=== PATIENT | male | born 1940 ===

== ENCOUNTER 2018-11-17 17:42 | Inpatient (IN) | payer MEDICARE ==
[~2018-11-17] VITALS: Ht 177.8 cm; Wt 122.9 kg
[~2018-11-17 17:42] MED LIST: BISA5EC PO; FERR325 PO; FURO40 PO; Fruity C250 MG PO; GEMF600 PO; GLYB5 PO; Glyburide5 MG PO; LISI20 PO; LOSARTAN POTAS100 MG PO; OXYC5 PO; PIOG45 PO; SPIR50 PO
[2018-11-17] MEDS ORDERED: PIOG45 PO (18:08)
[2018-11-17] MEDS ORDERED: OXYC5 PO (18:08)
[2018-11-17] MEDS ORDERED: GEMF600 PO (18:08)
[2018-11-17] MEDS ORDERED: LOSA25 PO (18:09)
[2018-11-17] MEDS ORDERED: SPIR50 PO (18:09)
[2018-11-17] MEDS ORDERED: FURO40 PO (18:10)
[2018-11-17] MEDS ORDERED: GLYB2.5 PO (18:10)
[2018-11-17] MEDS ORDERED: Zantac150 MG PO (18:11)
[2018-11-17] MEDS ORDERED: ASCO500 PO (18:12)
[2018-11-17] MEDS ORDERED: CHOL10002 PO (18:13)
[2018-11-17] MEDS ORDERED: Ferrous Sulfat325 M2 PO (18:13)
[2018-11-17 18:53] LABS: BASOPHILS ABSOLUTE AUTO 0.04 K/mm3 (0.00-0.23); BASOPHILS PERCENT AUTO 1 % (0-2); EOSINOPHILS ABSOLUTE AUTO 0.03 K/mm3 (0.00-0.68); EOSINOPHILS PERCENT AUTO 0 % (0-6); Hematocrit 32.6 % (37.0-53.0); Hemoglobin 10.1 g/dL (13.5-17.5); IMMATURE GRAN ABSOLUTE AUTO 0.15 K/mm3 (0.00-0.10); IMMATURE GRAN PERCENT AUTO 2 % (0-1); LYMPHOCYTES ABSOLUTE AUTO 0.59 K/mm3 (0.84-5.20); LYMPHOCYTES PERCENT AUTO 8 % (21-46); MONOCYTES ABSOLUTE AUTO 0.55 K/mm3 (0.16-1.47); MONOCYTES PERCENT AUTO 8 % (4-13); Mean Corpuscular HGB 31.3 pg (26.0-34.0); Mean Corpuscular Volume 101 fL (80-100); Mean Platelet Volume 11.4 fL (9.1-12.4); NEUTROPHILS ABSOLUTE AUTO 5.81 K/mm3 (1.96-9.15); NEUTROPHILS PERCENT AUTO 81 % (41-73); Platelet Count 158 K/mm3 (150-400); RDW Coefficient Variation 16.6 % (11.7-14.2); RDW Standard Deviation 61.2 fL (35.1-46.3); Red Blood Cell Count 3.23 M/mm3 (4.30-5.90); White Blood Cell Count 7.17 K/mm3 (4.00-11.30)
[2018-11-17 19:39] LABS: Albumin, Blood 2.8 g/dL (3.4-5.0); Albumin/Globulin Ratio 0.7 (0.8-1.8); Bilirubin, Total 0.4 mg/dL (0.1-1.0); Bun/Creatinine Ratio 25.7 (12.0-20.0); Calcium, Blood 7.9 mg/dL (8.5-10.1); Creatinine, Blood 2.14 mg/dL (0.60-1.20); Globulin, Blood 3.8 g/dL (2.2-4.0); Total Protein, Blood 6.6 g/dL (6.4-8.2)
[2018-11-17 21:17] LABS: Source, Urine Clean Catch
[2018-11-17 21:18] LABS: Uric Acid, Blood 8.1 mg/dL (3.5-7.2)
[2018-11-17 21:21] LABS: Appearance, Urine Clear (Clear); Bilirubin, Urine Neg (Neg); Blood, Urine Neg (Neg); Color, Urine Yellow (P-Yellow); Glucose Qualitative, Urine Neg (Neg); Ketones, Urine Neg (Neg); Leukocyte Esterase, Urine Neg (Neg); Nitrite, Urine Neg (Neg); Protein, Urine Neg (Neg); Specific Gravity, Urine 1.015 (1.003-1.022); Urobilinogen, Urine NORM (Normal)
[2018-11-17 21:45] LABS: Sodium, Urine, Random 22 mmol/L (20-110); Urea Nitrogen, Urine, Random 422 mg/dL (350-1000)
[2018-11-17 21:55] LABS: Eosinophils-Raw #,Urine 0; White Blood Cells Urine Rare /hpf (0-5)
[2018-11-17 22:22] LABS: U Amphetamine Screen Not Detected; U Barbituate Screen Not Detected; U Benzodiazapine Screen Not Detected; U Buprenorphine Screen Not Detected; U Cannabinoids Screen Not Detected; U Cocaine Screen Not Detected; U Methadone Screen Not Detected; U Methamphetamine Screen Not Detected; U Opiates Screen Not Detected; U Oxycodone Screen DETECTED; U Phencyclidine Screen Not Detected; U Propoxyphene Screen Not Detected
--- NOTE | 2018-11-18 02:43 | NUR ---
ASSUMED CARE OF PATIENT AT APPROXIMATELY 2350 FROM ED [facility]. PATIENT ARRIVED TO UNIT VIA STRETCHER; TRANSFER WITH TWO ASSIST FROM ED TO PCU STRETCHER; PATIENT VERY WEAK AND EDEMATOUS. PATIENT DENIES PAIN, NUMBNESS, TINGLING, DIZZINESS, NAUSEA AND SOB. NSR ON TELE; OXYEGN SATURATION ABOVE 90% ON ROOM AIR. PATIENTS BLOOD SUGAR 49 UPON ARRIVAL TO UNIT; PATIENT GIVEN VANILLA PUDDING; CALLED DR. FAJARDO; ORDERS RECIEVED TO GIVE ORAANGE JUICE THEN RECHECK; CBG UP TO 114; PATIENT REPORTS HE DID NOT FEEL HYPOGLYCEMIC. MEDICATIONS GIVEN BY PCU MOVING VAN DRIVERSTAR SANDERS FOR HIGH POTASSIUM. REPORTED PATIENT USES URINAL BEDSIDE WITH ONE ASSIST. PATIENT SKIN VERY FRAGILE AND BRUISED. ADMISSION COMPLETE. PATIENT CURRENTLY RESTING IN BED; CALL LIGHT IN REACH; BED IN LOWEST POSISTION; BED ALARM ON; WILL CONTINUE TO MONITOR AND ASSESS UNTIL END OF SHIFT.
[2018-11-18 02:52] LABS: Hematocrit 31.1 % (37.0-53.0); Hemoglobin 9.6 g/dL (13.5-17.5); Mean Corpuscular HGB 31.6 pg (26.0-34.0); Mean Corpuscular HGB Conc 30.9 g/dL (31.5-36.5); Mean Corpuscular Volume 102 fL (80-100); Mean Platelet Volume 10.9 fL (9.1-12.4); Platelet Count 140 K/mm3 (150-400); RDW Coefficient Variation 16.8 % (11.7-14.2); RDW Standard Deviation 62.8 fL (35.1-46.3); Red Blood Cell Count 3.04 M/mm3 (4.30-5.90); White Blood Cell Count 6.63 K/mm3 (4.00-11.30)
[2018-11-18 03:20] LABS: BASOPHILS ABSOLUTE MAN 0.19 K/mm3 (0.00-0.23); BASOPHILS PERCENT MAN 3 % (0-2); EOSINOPHILS ABSOLUTE MAN 0.13 K/mm3 (0.00-0.68); EOSINOPHILS PERCENT MAN 2 % (0-6); LYMPHOCYTES ABSOLUTE MAN 0.53 K/mm3 (0.84-5.20); LYMPHOCYTES PERCENT MAN 8 % (21-46); MONOCYTES ABSOLUTE MAN 0.72 K/mm3 (0.16-1.47); MONOCYTES PERCENT MAN 11 % (4-13); NEUTROPHILS ABSOLUTE MAN 5.03 K/mm3 (1.96-9.15); SEG NEUTROPHILS PERCENT MAN 76 % (41-73); TOTAL CELLS COUNTED 100
[2018-11-18 03:23] LABS: Bun/Creatinine Ratio 27.1 (12.0-20.0); Calcium, Blood 7.9 mg/dL (8.5-10.1); Creatinine, Blood 2.1 mg/dL (0.60-1.20)
--- NOTE | 2018-11-18 03:29 | NUR ---
POTASSIUM 6.0; CALLED DR. FAJARDO; ORDERS RECIEVED. PATIENT CURRENTLY SLEEPING IN BED; CALL LIGHT IN REACH; BED IN LOWEST POSISTION; WILL CONTINUE TO MONITOR AND ASSESS UNTIL END OF SHIFT.
[2018-11-18 09:52] LABS: Bun/Creatinine Ratio 26.9 (12.0-20.0); Calcium, Blood 7.6 mg/dL (8.5-10.1); Creatinine, Blood 2.08 mg/dL (0.60-1.20); Potassium, Blood 6.4 mmol/L (3.5-5.5)
--- NOTE | 2018-11-18 15:02 | NUR ---
Spiritual care visit conducted. Patient was alert and watching television when I entered the room. Patient shared that he had been improving enough to go home but understood that he would be very limited in terms of capacity when he returned. I normalized patient's experience, explored sources of meaning and dignity and reinforced helpful attitudes. Patient responded well and thanked me for the visit.
--- NOTE | 2018-11-18 18:37 | NUR ---
END OF SHIFT PT HAS HAD NO CHANGES TO THE ASSESSMENT, VSS, PT MADE AWARE OF THE TUMOR LIKE MASS IN HIS ABDOMIN, PT TOLERATING MOVEMENT, PT HAS NO PAIN
--- NOTE | 2018-11-18 19:18 | NUR ---
Asked to speak to Mr. Ramirez as he had just been told he has a mass suspicious of cancer. He was clearly in emotional shock--monotone speech, one-word answers. He appeared numb. He had not contacted his or his children. He kept saying he was bewilderd that he was not in pain, therefore, "how could this be cancer?" I provided calm presence and active listening. Assured him of excellent care and guidence. I also encouraged him to reach out to his and children. He will greatly benefit from slow, careful explainations of dx and options. He is not yazidi. I suspect he will also benefit from support post-hospitalization. Refrigeration Unit Repairer services will remain available.
[2018-11-19 04:15] LABS: BASOPHILS ABSOLUTE AUTO 0.04 K/mm3 (0.00-0.23); BASOPHILS PERCENT AUTO 1 % (0-2); EOSINOPHILS ABSOLUTE AUTO 0.15 K/mm3 (0.00-0.68); EOSINOPHILS PERCENT AUTO 3 % (0-6); Hematocrit 28.7 % (37.0-53.0); Hemoglobin 8.9 g/dL (13.5-17.5); IMMATURE GRAN ABSOLUTE AUTO 0.07 K/mm3 (0.00-0.10); IMMATURE GRAN PERCENT AUTO 1 % (0-1); LYMPHOCYTES ABSOLUTE AUTO 0.65 K/mm3 (0.84-5.20); LYMPHOCYTES PERCENT AUTO 13 % (21-46); MONOCYTES ABSOLUTE AUTO 0.51 K/mm3 (0.16-1.47); MONOCYTES PERCENT AUTO 10 % (4-13); Mean Corpuscular HGB 31.3 pg (26.0-34.0); Mean Corpuscular Volume 101 fL (80-100); Mean Platelet Volume 10.8 fL (9.1-12.4); NEUTROPHILS ABSOLUTE AUTO 3.69 K/mm3 (1.96-9.15); NEUTROPHILS PERCENT AUTO 72 % (41-73); Platelet Count 113 K/mm3 (150-400); RDW Coefficient Variation 16.4 % (11.7-14.2); RDW Standard Deviation 60.8 fL (35.1-46.3); Red Blood Cell Count 2.84 M/mm3 (4.30-5.90); White Blood Cell Count 5.11 K/mm3 (4.00-11.30)
[2018-11-19 04:38] LABS: Percent Saturation 22.8 % (20.0-50.0)
[2018-11-19 04:44] LABS: Albumin, Blood 2.6 g/dL (3.4-5.0); Albumin/Globulin Ratio 0.8 (0.8-1.8); Bilirubin, Total 0.6 mg/dL (0.1-1.0); Bun/Creatinine Ratio 24.8 (12.0-20.0); Calcium, Blood 7.5 mg/dL (8.5-10.1); Creatinine, Blood 2.34 mg/dL (0.60-1.20); Globulin, Blood 3.4 g/dL (2.2-4.0)
--- NOTE | 2018-11-19 05:59 | NUR ---
ASSUMED CARE OF PATIENT AT APPROXIMATELY 1905 FROM ALEYDA Hayward RN. PATIENT ALERT AND ORIENTED X4; PATIENT VERY WEAK AND EDEMATOUS. PATIENT DENIES PAIN, NUMBNESS, TINGLING, DIZZINESS, NAUSEA AND SOB. NSR ON TELE; OXYEGN SATURATION ABOVE 90% ON ROOM AIR. PATIENT IS ONE ASSIST W/ FWW TO BATHROOM; LOOSE STOOL; ATTENDS IN PLACE. PATIENT REPORTS BED UNCOMFORTABLE; FOAM APPLIED AND GOWN CHANGED. PATIENT'S POTASSIUM REMAINS CRITICALLY HIGH THIS MORNING; 6.0; CALLED DR. FAJARDO; NO NEW ORDERS RECIEVED. PATIENT REPORTS HE HAS NOT DECIDED ON WHETHER OR NOT HE WANTS TO GO TO [place]. PATIENT SKIN VERY FRAGILE AND BRUISED. PIV S/L. PATIENT CURRENTLY SLEEPING IN BED; CALL LIGHT IN REACH; BED IN LOWEST POSISTION; BED ALARM ON; WILL CONTINUE TO MONITOR AND ASSESS UNTIL END OF SHIFT.
== END 2018-11-19 15:25 | disposition home or self-care (01) | DRG 683 ==
LOC: ER 17:42 → PCU 21:09
PROVIDERS: Emergency Medicine; Internal Medicine; Nurse Practitioner Acute Care; ADMIT Hospitalist
PROC: 3E0234Z Introduction of Serum, Toxoid and Vaccine into Muscle, Percutaneous Approach (ICD-10-PCS; principal; 2018-11-18)
DX: N17.9 Acute kidney failure, unspecified (principal); R18.8 Other ascites; K76.6 Portal hypertension; Z23 Encounter for immunization; I10 Essential (primary) hypertension; D50.9 Iron deficiency anemia, unspecified; R19.09 Other intra-abdominal and pelvic swelling, mass and lump; I25.10 Atherosclerotic heart disease of native coronary artery without angina pectoris; E11.51 Type 2 diabetes mellitus with diabetic peripheral angiopathy without gangrene; E11.649 Type 2 diabetes mellitus with hypoglycemia without coma; E87.5 Hyperkalemia; K74.60 Unspecified cirrhosis of liver; Z79.899 Other long term (current) drug therapy; Z87.891 Personal history of nicotine dependence
CPT/HCPCS: 36415; 51798; 71046; 74176; 80048; 80053; 81003; 82550; 82570; 82728; 82947; 83540; 83550; 83880; 84132; 84300; 84484; 84540; 84550; 85007; 85025; 85027; 85651; 87205; 90686; 93005; 93010; 96374; 96375; 99285-25; G0008; J0610; J1815; J1940; J2405; J7030; P9046

== ENCOUNTER → 2018-12-08 | Outpatient (CLI) | payer MEDICARE ==
[~2018-12-08] MED LIST changes: +ASCO500 PO; +CHOL10002 PO; +Ferrous Sulfat325 M2 PO; +GLYB2.5 PO; +LOSA25 PO; +Zantac150 MG PO
[2018-12-08 15:24] LABS: Alanine Aminotransfer (ALT/SGP 8 U/L (12-78); Albumin, Blood 2.9 g/dL (3.4-5.0); Albumin/Globulin Ratio 0.9 (0.8-1.8); Alk Phos 128 U/L (50-136); Anion Gap 8 mmol/L (6-16); Aspartate Aminotrans (AST/SGOT 22 U/L (12-37); Bilirubin, Total 0.6 mg/dL (0.1-1.0); Blood Urea Nitrogen 23 mg/dL (8-24); CO2, Blood 27 mmol/L (21-32); Calcium, Blood 8.1 mg/dL (8.5-10.1); Chloride, Blood 109 mmol/L (98-108); Creatinine, Blood 1.15 mg/dL (0.60-1.20); Globulin, Blood 3.2 g/dL (2.2-4.0); Glomerular Filtration Rate >60 (60-); Glucose, Blood 149 mg/dL (70-99); Potassium, Blood 5.2 mmol/L (3.5-5.5); Sodium, Blood 144 mmol/L (136-145); Total Protein, Blood 6.1 g/dL (6.4-8.2)
== END | disposition home or self-care (01) ==
LOC: LAB SHORT 11:30 → LAB 11:30
PROVIDERS: Internal Medicine Hematology & Oncology
DX: E11.9 Type 2 diabetes mellitus without complications (principal); R53.81 Other malaise; R53.83 Other fatigue; R60.9 Edema, unspecified
CPT/HCPCS: 80053; 83036

== ENCOUNTER 2019-03-13 16:46 | Inpatient (IN) | payer MEDICARE ==
[~2019-03-13] VITALS: Ht 177.8 cm; Wt 110.1 kg
[2019-03-13 17:26] LABS: BASOPHILS ABSOLUTE AUTO 0.06 K/mm3 (0.00-0.23); BASOPHILS PERCENT AUTO 1 % (0-2); EOSINOPHILS ABSOLUTE AUTO 0.22 K/mm3 (0.00-0.68); EOSINOPHILS PERCENT AUTO 2 % (0-6); Hematocrit 25.8 % (37.0-53.0); Hemoglobin 7.9 g/dL (13.5-17.5); IMMATURE GRAN ABSOLUTE AUTO 0.19 K/mm3 (0.00-0.10); IMMATURE GRAN PERCENT AUTO 2 % (0-1); LYMPHOCYTES PERCENT AUTO 8 % (21-46); MONOCYTES ABSOLUTE AUTO 0.93 K/mm3 (0.16-1.47); MONOCYTES PERCENT AUTO 8 % (4-13); Mean Corpuscular HGB 27.5 pg (26.0-34.0); Mean Corpuscular HGB Conc 30.6 g/dL (31.5-36.5); Mean Corpuscular Volume 90 fL (80-100); NEUTROPHILS ABSOLUTE AUTO 9.55 K/mm3 (1.96-9.15); NEUTROPHILS PERCENT AUTO 81 % (41-73); NRBC ABSOLUTE 0.04 K/mm3 (0.00-0.02); NRBC Auto 0.3 /100 WBC (0.0-0.2); RDW Coefficient Variation 14.5 % (11.7-14.2); RDW Standard Deviation 47.8 fL (35.1-46.3); Red Blood Cell Count 2.87 M/mm3 (4.30-5.90); White Blood Cell Count 11.85 K/mm3 (4.00-11.30)
[2019-03-13 17:39] LABS: Albumin, Blood 2.5 g/dL (3.4-5.0); Albumin/Globulin Ratio 0.8 (0.8-1.8); Bilirubin, Total 0.7 mg/dL (0.1-1.0); Bun/Creatinine Ratio 39.4 (12.0-20.0); Calcium, Blood 7.7 mg/dL (8.5-10.1); Creatinine, Blood 2.26 mg/dL (0.60-1.20); Globulin, Blood 3.3 g/dL (2.2-4.0); Potassium, Blood 4.8 mmol/L (3.5-5.5); Total Protein, Blood 5.8 g/dL (6.4-8.2)
[2019-03-13] MEDS ORDERED: Prochlorperazin10 MG PO (17:54)
[2019-03-13] MEDS ORDERED: METO5 PO (17:54)
[2019-03-13] MEDS ORDERED: BUME2 PO (17:55)
[2019-03-13] MEDS ORDERED: ESCI10 PO (17:55)
[2019-03-13 18:20] LABS: Mean Platelet Volume 11.3 fL (9.1-12.4); Platelet Count 109 K/mm3 (150-400)
[2019-03-13 18:30] LABS: International Normalized Ratio 1.05; Prothrombin Time Results 11.1 Sec (9.7-11.5)
[2019-03-13 18:36] LABS: Source, Urine Clean Catch
[2019-03-13 18:51] LABS: Appearance, Urine Clear (Clear); Bilirubin, Urine Neg (Neg); Blood, Urine Neg (Neg); Color, Urine Yellow (P-Yellow); Glucose Qualitative, Urine Neg (Neg); Ketones, Urine Neg (Neg); Leukocyte Esterase, Urine 2+ (Neg); Nitrite, Urine Neg (Neg); Protein, Urine Neg (Neg); Specific Gravity, Urine 1.015 (1.003-1.022); Urobilinogen, Urine 1+ (Normal)
[2019-03-13 19:04] LABS: Bacteria Few /hpf; Red Blood Cells, Urine 0-2 /hpf (0-2); Squamous Epithelial Cells Few /hpf (Few)
[2019-03-14 06:15] LABS: BASOPHILS ABSOLUTE AUTO 0.07 K/mm3 (0.00-0.23); BASOPHILS PERCENT AUTO 0 % (0-2); EOSINOPHILS ABSOLUTE AUTO 0.14 K/mm3 (0.00-0.68); EOSINOPHILS PERCENT AUTO 1 % (0-6); Hematocrit 28.5 % (37.0-53.0); Hemoglobin 8.7 g/dL (13.5-17.5); IMMATURE GRAN ABSOLUTE AUTO 0.28 K/mm3 (0.00-0.10); IMMATURE GRAN PERCENT AUTO 2 % (0-1); LYMPHOCYTES ABSOLUTE AUTO 0.89 K/mm3 (0.84-5.20); LYMPHOCYTES PERCENT AUTO 5 % (21-46); MONOCYTES ABSOLUTE AUTO 1.23 K/mm3 (0.16-1.47); MONOCYTES PERCENT AUTO 7 % (4-13); Mean Corpuscular HGB 26.9 pg (26.0-34.0); Mean Corpuscular HGB Conc 30.5 g/dL (31.5-36.5); Mean Corpuscular Volume 88 fL (80-100); Mean Platelet Volume 11.5 fL (9.1-12.4); NEUTROPHILS ABSOLUTE AUTO 14.85 K/mm3 (1.96-9.15); NEUTROPHILS PERCENT AUTO 85 % (41-73); NRBC ABSOLUTE 0.08 K/mm3 (0.00-0.02); NRBC Auto 0.5 /100 WBC (0.0-0.2); Platelet Count 118 K/mm3 (150-400); RDW Coefficient Variation 14.5 % (11.7-14.2); RDW Standard Deviation 46.9 fL (35.1-46.3); Red Blood Cell Count 3.24 M/mm3 (4.30-5.90); White Blood Cell Count 17.46 K/mm3 (4.00-11.30)
--- NOTE | 2019-03-14 06:26 | NUR ---
SHIFT SUMMARY PT ARRIVED TO ROOM APPROX 2200. A/O NO C/O PAIN. LEGS ABD SEVERELY EDEMATOUS. FLOATED C PILLOWS AND LEGS ELEVATED ON PILLOWS. RECEIVED 1 UNIT PRBC'S NO TRANSFUSION REACTION. NONAMBULATORY AT THIS TIME. NEEDS ASSISTANCE C URINAL. BEEN URINATING 50-100ML EACH TIME. BLADDER SCANNER NOT ABLE TO WORK ON HIS ABD. PRESSURE ULCER NOTED ON COCCYX FROM HOME. MEPILEX APPLIED. YEAST SMELL NOTED IN ABD FOLDS CLEANSED AND DRIED. WAS NOT ABLE TO HAVE BM ON BEDPAN. WILL PASS ON REPORT TO DAY RN.
[2019-03-14 06:37] LABS: Albumin, Blood 2.4 g/dL (3.4-5.0); Albumin/Globulin Ratio 0.7 (0.8-1.8); Bilirubin, Total 2.1 mg/dL (0.1-1.0); Bun/Creatinine Ratio 40.1 (12.0-20.0); Calcium, Blood 7.7 mg/dL (8.5-10.1); Creatinine, Blood 2.22 mg/dL (0.60-1.20); Globulin, Blood 3.3 g/dL (2.2-4.0); Total Protein, Blood 5.7 g/dL (6.4-8.2)
--- NOTE | 2019-03-14 07:05 | NUR ---
Assumed care of patient and received report from Elina GRAVES. Patient resting in bed with HOB 30 degrees. A/O, No signs of respiratory distress.
[2019-03-14 08:35] LABS: Source, Urine Catheter
[2019-03-14 08:38] LABS: Bilirubin, Urine Neg (Neg); Blood, Urine Neg (Neg); Glucose Qualitative, Urine Neg (Neg); Ketones, Urine Neg (Neg); Leukocyte Esterase, Urine 1+ (Neg); Nitrite, Urine Neg (Neg); Protein, Urine Neg (Neg); Urobilinogen, Urine NORM (Normal)
[2019-03-14 09:31] LABS: Appearance, Urine Hazy (Clear); Bacteria Not Seen /hpf; Color, Urine Yellow (P-Yellow); Red Blood Cells, Urine Not Seen /hpf (0-2); Squamous Epithelial Cells Not Seen /hpf (Few)
[2019-03-14] MEDS ORDERED: ALUMINUM HYDROXIDE PO (11:23)
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
--- NOTE | 2019-03-14 17:41 | NUR ---
Shift Summary A/O x 3. Pleasant and cooperative with care. Medicated for back pain x 1 with Oxycodone. Denies N/V. Cruz patent and in place. Able to make needs known. VSS. Will continue to monitor until end of shift report.
--- NOTE | 2019-03-14 18:31 | NUR ---
STUDENT HAD PT CARE PLEASE REFER TO STUDENT NOTE FOR SHIFT SUMMARY.
--- NOTE | 2019-03-15 04:06 | NUR ---
SHIFT SUMMARY: PT IS ALERT AND ORIENTED. PT IS CALM AND COOPERATIVE WITH CARE. PT CALLS APPROPRIATELY. PT IS ON BEDREST, NOT UP OVERNIGHT, TURNED Q2H. MAE PATENT AND DRAINING YELLOW URINE. PT DENIES PAIN, NAUSEA, VOMITING, AND SOB. FAMILY IN VISITING AT THE START OF SHIFT. PT SLEPT INTERMITTENTLY THROUGHOUT THE NIGHT. NO ACUTE CHANGES OR COMPLICATIONS THIS SHIFT. WILL REPORT TO DAY NURSE.
[2019-03-15 05:43] LABS: Hematocrit 28.1 % (37.0-53.0); Hemoglobin 8.7 g/dL (13.5-17.5); Mean Corpuscular HGB 27.3 pg (26.0-34.0); Mean Corpuscular Volume 88 fL (80-100); Mean Platelet Volume 11.4 fL (9.1-12.4); NRBC ABSOLUTE 0.05 K/mm3 (0.00-0.02); NRBC Auto 0.3 /100 WBC (0.0-0.2); Platelet Count 121 K/mm3 (150-400); RDW Coefficient Variation 14.8 % (11.7-14.2); Red Blood Cell Count 3.19 M/mm3 (4.30-5.90); White Blood Cell Count 14.67 K/mm3 (4.00-11.30)
[2019-03-15 06:18] LABS: Albumin, Blood 2.2 g/dL (3.4-5.0); Anion Gap 9 mmol/L (6-16); Blood Urea Nitrogen 94 mg/dL (8-24); Bun/Creatinine Ratio 38.8 (12.0-20.0); CO2, Blood 24 mmol/L (21-32); Calcium, Blood 7.5 mg/dL (8.5-10.1); Chloride, Blood 99 mmol/L (98-108); Creatinine, Blood 2.42 mg/dL (0.60-1.20); Glomerular Filtration Rate 28 (60-); Glucose, Blood 165 mg/dL (70-99); Phosphorus, Blood 3.3 mg/dL (2.5-4.9); Sodium, Blood 132 mmol/L (136-145)
--- NOTE | 2019-03-15 16:37 | NUR ---
SHIFT SUMMARY PT GIVEN A SPONGE BATH THIS AFTERNOON WHEN LINENS BEING CHANGED. SKIN VERY FRAGILE AND ANY ACCIDENTAL RUBBING CAUSES BRUISING OR SKIN TEARS. FAMILY IN AND OUT OF ROOM. CONTINUES WITH SIGNIFICANT SWELLING TO ENTIRE BODY. HAS NOT HAD MORE THAN 300-500ML OUTPUT SINCE BUMEX GIVEN THIS MORNING. CALL PLACED FOR CONSULT TO DR. WRIGHT. REPOSITIONED Q2 HOURS AND UPON REQUEST.
[2019-03-16 05:39] LABS: Hematocrit 28.1 % (37.0-53.0); Hemoglobin 8.7 g/dL (13.5-17.5)
[2019-03-16 06:04] LABS: Albumin, Blood 2.1 g/dL (3.4-5.0); Anion Gap 7 mmol/L (6-16); Blood Urea Nitrogen 103 mg/dL (8-24); Bun/Creatinine Ratio 40.6 (12.0-20.0); CO2, Blood 24 mmol/L (21-32); Calcium, Blood 7.7 mg/dL (8.5-10.1); Chloride, Blood 99 mmol/L (98-108); Creatinine, Blood 2.54 mg/dL (0.60-1.20); Glomerular Filtration Rate 26 (60-); Glucose, Blood 169 mg/dL (70-99); Magnesium, Blood 3.1 mg/dL (1.6-2.4); Phosphorus, Blood 3.8 mg/dL (2.5-4.9); Potassium, Blood 5.3 mmol/L (3.5-5.5); Sodium, Blood 130 mmol/L (136-145)
--- NOTE | 2019-03-16 06:29 | NUR ---
SHIFT SUMMARY PT IS A 78 Y/O MALE, ADMITTED FOR SYMPTOMATIC ANEMIA. HE IS A&O X 3, FORGETFUL AT TIMES, BUT COOPERATIVE WITH CARE. HE REPORTED ABDOMINAL PAIN AND NAUSEA DURING THE NIGHT, FOR WHICH HE WAS MEDICATED X 1 WITH PRN OXYCODONE AND ZOFRAN. HE DENIED ANY ACUTE SOB, AND SLEPT WELL THROUGH THE NIGHT. VITALS STABLE. NO OTHER ACUTE CHANGES IN PT CONDITION NOTED. WILL CONTINUE TO MONITOR AND TREAT PER EMAR.
--- NOTE | 2019-03-16 18:20 | NUR ---
SHIFT SUMMARY PT TURNED FREQUENTLY. REPORTS MORE DISCOMFORT TODAY THAN YESTERDAY. REMAINS VERY EDEMATOUS ALL OVER BODY. BUMEX DRIP STARTED THIS MORNING. EATING ONLY SMALL AMOUNTS AT A TIME. FAMILY IN AND OUT OF ROOM. USING CALL BUTTON APPROPRIATELY.
[2019-03-17 06:58] LABS: Albumin, Blood 2.3 g/dL (3.4-5.0); Anion Gap 7 mmol/L (6-16); Blood Urea Nitrogen 115 mg/dL (8-24); Bun/Creatinine Ratio 46.4 (12.0-20.0); CO2, Blood 26 mmol/L (21-32); Calcium, Blood 7.8 mg/dL (8.5-10.1); Chloride, Blood 99 mmol/L (98-108); Creatinine, Blood 2.48 mg/dL (0.60-1.20); Glomerular Filtration Rate 27 (60-); Glucose, Blood 180 mg/dL (70-99); Magnesium, Blood 3.2 mg/dL (1.6-2.4); Phosphorus, Blood 4.5 mg/dL (2.5-4.9); Potassium, Blood 5.6 mmol/L (3.5-5.5); Sodium, Blood 132 mmol/L (136-145)
--- NOTE | 2019-03-17 07:39 | NUR ---
NOT SHIF SUMMARY PT IS PLEASANT AND COOPERATIVE WITH CARE THIS NIGHT. TURNED [id number] THOUGHOUT THE NIGHT. TREATED FOR PAIN PER EMAR TO GOOD EFFECT. NOT ACUTE CHANGES NOTED THIS NIGHT. AAOX4, RESP EVEN AND UNLABORED, VSS. REPORT TO ONCOMING RN.
--- NOTE | 2019-03-17 18:04 | NUR ---
SHIFT SUMMARY PT SLEEPING ON AND OFF THROUGH DAY. TURNED FREQUENTLY FOR COMFORT. MEDICATED FOR PAIN NEEDED. DIURESING PER ORDERS. STATES HE HAS HAD A SORE THROAT FOR ABOUT 5 DAYS. NO S/S OF REDNESS, WHITE PATCHES, OR SWELLING NOTED WHEN VISUALIZED. FAMILY IN FOR SHORT TIME THIS AFTERNOON AND THIS MORNING.
--- NOTE | 2019-03-18 04:06 | NUR ---
NOC SHIFT SUMMARY PT HAS BEEN PLEASANT AND COOPERATIVE WITH CARE THIS NIGHT. HAS SLEPT OFF AND ON THROUGH THE NIGHT. VSS. HAS BEEN TURNED [id number]. HE HAS COMPLAINED OF A SORE THROAT THAT HAS BEEN ONGOING FOR SOME DAYS. THROAT DOES NOT APPEAR ABNORMAL. PT CURRENTLY APPEARS IN NO ACUTE DISTRESS. CATHETER CONTINUES TO DRAIN. WILL CONTINUE TO MONITOR.
[2019-03-18 05:49] LABS: Hematocrit 29.1 % (37.0-53.0); Hemoglobin 8.8 g/dL (13.5-17.5)
[2019-03-18 06:05] LABS: Magnesium, Blood 2.9 mg/dL (1.6-2.4)
[2019-03-18 06:06] LABS: Albumin, Blood 2.7 g/dL (3.4-5.0); Anion Gap 7 mmol/L (6-16); Blood Urea Nitrogen 118 mg/dL (8-24); Bun/Creatinine Ratio 52.7 (12.0-20.0); CO2, Blood 26 mmol/L (21-32); Calcium, Blood 7.8 mg/dL (8.5-10.1); Chloride, Blood 99 mmol/L (98-108); Creatinine, Blood 2.24 mg/dL (0.60-1.20); Glomerular Filtration Rate 30 (60-); Glucose, Blood 151 mg/dL (70-99); Phosphorus, Blood 4.6 mg/dL (2.5-4.9); Potassium, Blood 5.4 mmol/L (3.5-5.5); Sodium, Blood 132 mmol/L (136-145)
--- NOTE | 2019-03-18 15:18 | NUR ---
Initial Pal Care visit. Case conference with Dr Corbett and Hui RODRIGUEZ earlier today and reviewed EMR. Pt has a metastatic process and abdominal primary cancer. Dr Wilkerson has called a hospice referral in to [facility] hospice but pt and report they have not discussed this with them. Dr Lawson requests that we have a family meeting and discuss transisiton to hospice care. EJNNIFER Ames states SNF was planned but pt is declining and has not been able to prarticipate with PT/OT due to weakness and grossly distended abdomen and 4+ pitting edema of LE brenda. Pt understands from his Dr's that his cancer and overall prognosis is poor. When asked how he felt about dialysis for his renal failure he was clear that he had no intention of pursuing dialysis in light of his current prognosis and condition. He is alert and oriented. He reports being "very uncomfortable" and rates his pain as 6-7/10. This was reported to nursing staff and request for pain medication made. He states he gets fair relief with pain medication. Plan made with pt and by phone to meet in pt's room this afternoon and discuss advanced care planning further. stated she is unable to continue home care that she has been doing for a very long time now with some assistance from her son. I will briefly review some options other than home with hospice with them this afternoon and report back to clinical manager home care. I phoned a report to Dr Corbett re: above. JENNIFER will not be able to attend the the family meeting.
--- NOTE | 2019-03-18 17:13 | NUR ---
60+minute family meeting with myself, pt, son(Liam), Libertad, and step-son (I believe) Marcos. We discussed pt's current status, prognosis per 's and advanced care planning options. Hospice care and comfort care questions answered in detail after in depth discussion about both. When pt's son, Liam, asked pt what he thought, pt stated he was "processing" and I encouraged him to take some time to do that and ask any questions he had. FAmily had been focused on "getting rid of the fluid" so he could go to rehab, walk again and return home. They stated this was the first time they were made aware or discussed the possibility that rehab & being independently mobile again may not be possible now. I reviewed PT notes w/fam from earlier in the week and what the criteria for going to rehab would be. and sons have been trying to provide care without support at home for some time now. Pt and family report that he has been very ill for a long time and declining for months. He has a lift chair at home and he/family could barely get him up and to the bathroom. He is much more weak now than he was at home. He is receiving IV bumex & had some increase in urine output but not enough to give pt relief from abd ascites and brenda LE 4+ pitting edema. Family is clear that they do not have the resources and ability to manage his care at home due to pt's lack of strenght, mobility, pt's size and their own physical limitations. We talked about the support available thru Hospice and potentially hiring a meat department manager CG for respite, care of a bedfast pt, options in the community for alternate placement, whether on hospice or not. Many questions answered about return to hospital restrictions on Hospice. They also state that there are no funds available more than $1000 to hire a CG or pay out of pocket for placement. I obtained instructions for starting the process/medicaid application from and returned to deliver and explain to the family. I encouraged them to call [employer] this afternoon and gather what information they could for that application over the weekend. Pt was awake and listening t/o visit but fairly quiet unless we asked him for input directly. He is still reporting pain in abdomen and even more so in his back and hip. He came to the hospital with coccyx wounds and states they are hurting. Assistance obtained for turning, which requires 2-3 people for bed mobility. Pt repositioned and turned to his right side. Discussed q2hr turning with him, family and staff. Pt reports mouth pain due to thrush and was started on nystatin this am. Discussed magic mouthwash for oral pain relief with RN and she will contact Dr to request orders. Student nurse, nurse and I reviewed current rx orders for s/s management and discussed using medications as ordered per eMAR more frequently and more consistently for improved pain relief. If this is not adequate for pain relief over the next 12-18 hours, I would recommend using Roxanol 5-20 mg q2hrs prn pain unrelieved with PO analgesics that are currently ordered. Pt has had transient n/v. He reported no nausea but had emesis after pain meds were given. RN gave zofran IV per eMAR. Pt has poor appetite, especially with abd distention and mouth pain. Recommend bites of pudding, yogart or applesause with pain meds to decrease GI upset. I discussed all of the above and also asked if an abdominal tap would be of any benefit for s/s relief with Student nurse, PT, RN and Dr with report called to Dr Corbett after my family conference. Plan for Pal Care RN to follow up with pt and mid morning tomorrow re: s/s management, comfort care, questions re: advanced care planning and goals of care that pt//sons may have. Brochure on Considering Comfort care given to family to review and generate more questions and conversation amongst themselves and with their care providers.
--- NOTE | 2019-03-18 18:43 | NUR ---
SHIFT SUMMARY NO SIGNIFIGANT CHANGES THIS SHIFT. PALLIATIATIVE CARE CAM TODAY TO TALK WITH PATIENT AND FAMILY ABOUT TRANSITIONING TO COMFORT CARE. TODAY WAS THE FIRST DAY THAT PT AND FAMILY HAD CONVERSATION REGARDING PT'S TRANSITITION TO COMFORT CARE. PT NEEDS TO BE KEPT OFF BOTTOM MUCH POSSIBLE DUE TO PRESSURE ULCER ON SACRUM. Q2 TURNS. PALLLIATIVE CARE WANTS TO IMPLEMENT PAIN AND COMFORT MANAGMENT BY ALTERNATING BETWEEN NORCO/OXY Q3. PATIENT IN BED AT LOWEST POSITION, LOCKED. CALL LIGHT WITHIN REACH.
--- NOTE | 2019-03-18 22:35 | NUR ---
2037 PT LYING IN BED, A LITTLE SLEEPY. DENIES ANY DISCOMFORT AT THIS TIME. DECLINES PAIN MEDICATION AT THIS TIME. NO APPARENT SIGNS OF DISTRESS. CALL LIGHT IS IN REACH.
--- NOTE | 2019-03-18 22:47 | NUR ---
PT LYING IN BED, EYES CLOSED, APPEARS TO BE RESTING. BREATHING IS EVEN, UNLABORED. NO APPARENT SIGNS OF DISTRESS. CALL LIGHT IS IN REACH.
--- NOTE | 2019-03-19 | NUR ---
PT LYING IN BED, EYES CLOSED, APPEARS TO BE RESTING. BREATHING IS EVEN, UNLABORED. NO APPARENT SIGNS OF DISTRESS. CALL LIGHT IS IN REACH.
--- NOTE | 2019-03-19 02:02 | NUR ---
PT LYING IN BED,EYES CLOSED, APPEARS TO BE RESTING. BREATHING IS EVEN, UNLABORED. NO APPARENT SIGNS OF DISTRESS. CALL LIGHT IS IN REACH.
--- NOTE | 2019-03-19 02:33 | NUR ---
PT IS AAO X 4 BUT SLEEPY. DENIED ANY DISCOMFORT FOR THIS SHIFT. HAS A MAE WITH CLEAR YELLOW URINE. EDEMA 4+ IN LEGS AND EDEMA IN ABD. BS WAS 165. SCD'S ON. PAIN MED GIVEN ABOUT MIDNIGHT UPON PT REQUEST, OXYCODONE.
--- NOTE | 2019-03-19 04:22 | NUR ---
PT LYING IN BED, EYES CLOSED, APPEARS TO BE RESTING. BREATHING IS EVEN, UNLABORED. NO APPARENT SIGNS OF DISTRESS. CALL LIGHT IS IN REACH.
[2019-03-19 05:49] LABS: BASOPHILS ABSOLUTE AUTO 0.06 K/mm3 (0.00-0.23); BASOPHILS PERCENT AUTO 1 % (0-2); EOSINOPHILS ABSOLUTE AUTO 0.28 K/mm3 (0.00-0.68); EOSINOPHILS PERCENT AUTO 3 % (0-6); Hematocrit 27.4 % (37.0-53.0); Hemoglobin 8.2 g/dL (13.5-17.5); IMMATURE GRAN ABSOLUTE AUTO 0.06 K/mm3 (0.00-0.10); IMMATURE GRAN PERCENT AUTO 1 % (0-1); LYMPHOCYTES ABSOLUTE AUTO 0.67 K/mm3 (0.84-5.20); LYMPHOCYTES PERCENT AUTO 8 % (21-46); MONOCYTES ABSOLUTE AUTO 0.79 K/mm3 (0.16-1.47); MONOCYTES PERCENT AUTO 9 % (4-13); Mean Corpuscular HGB 26.5 pg (26.0-34.0); Mean Corpuscular HGB Conc 29.9 g/dL (31.5-36.5); Mean Corpuscular Volume 89 fL (80-100); Mean Platelet Volume 11.1 fL (9.1-12.4); NEUTROPHILS ABSOLUTE AUTO 6.75 K/mm3 (1.96-9.15); NEUTROPHILS PERCENT AUTO 78 % (41-73); Platelet Count 86 K/mm3 (150-400); RDW Coefficient Variation 15.3 % (11.7-14.2); RDW Standard Deviation 48.8 fL (35.1-46.3); Red Blood Cell Count 3.09 M/mm3 (4.30-5.90); White Blood Cell Count 8.61 K/mm3 (4.00-11.30)
[2019-03-19 06:18] LABS: Albumin, Blood 2.8 g/dL (3.4-5.0); Anion Gap 7 mmol/L (6-16); Blood Urea Nitrogen 123 mg/dL (8-24); Bun/Creatinine Ratio 56.7 (12.0-20.0); CO2, Blood 28 mmol/L (21-32); Calcium, Blood 7.9 mg/dL (8.5-10.1); Chloride, Blood 99 mmol/L (98-108); Creatinine, Blood 2.17 mg/dL (0.60-1.20); Glomerular Filtration Rate 31 (60-); Glucose, Blood 121 mg/dL (70-99); Phosphorus, Blood 4.9 mg/dL (2.5-4.9); Sodium, Blood 134 mmol/L (136-145)
--- NOTE | 2019-03-19 06:29 | NUR ---
PT LYING IN BED, ASSISTED NETWORKING ENGINEER IN TURNING PATIENT. NO APPARENT SIGNS OF DISTRESS. PT DENIES NEED FOR ANYTHING AT THIS TIME. CALL LIGHT IS IN REACH. NO OTHER CHANGES THIS SHIFT.
--- NOTE | 2019-03-19 10:12 | NUR ---
Pt visit this AM. Pt reports 6/10 pain in his throat and mouth. Pt reports current regimen is managing his pain. Pt's Libertad, son Marcos, daughter in law Mela, and daughter Vicky on speaker phone present during visit. Pt and family report they have chosen option of hospice. Answered questions and concerns regarding hospice. Gave choices of hospice agencies and family will report choice after discussing among each other. Daughter Vicky inquires about placing Pt on comfort care now. Pt reports that he does not want to be placed on comfort care yet and states he wants to wait until he is discharged on hospice. Family expresses concerns regarding their ability to turn Pt as needed once home. Many of the family members are disabled. Suggested to gather other family members and friends to aid with assistance. Suggest that hospice can provide an alternating air mattress that can also help. No other concerns reported at this time. Dr Corbett is present at the end of palliative care visit. Reported to Dr Georges of Pt's and family decision and plan. Dr Corbett is agreeable with plan. Plan: Placed hospice referral and palliative care will remain available for symptom management. Family may benefit from physical therapey education for safety of rolling Pt.
--- NOTE | 2019-03-19 10:29 | NUR ---
Late Entry from previous note. Pt will need hospital bed, pump and pad, and bedside table when discharged home with hospice.
--- NOTE | 2019-03-19 17:45 | NUR ---
SHIFT SUMMARY NO CHANGES IN ASSESSMENT AT THIS TIME. VSS. PT SLEPT MOST THIS SHIFT. PT & FAMILY DISCUSSING CARE WITH THE PALLATIVE TEAM. PT REPOSITIONED Q2H OR NEEDED. NO COMPLAINTS AT THIS TIME. MEDICATED FOR PAIN TWICE THIS SHIFT. WILL CONTINUE TO MONITOR UNTIL TURNOVER IS COMPLETE.
--- NOTE | 2019-03-19 21:33 | NUR ---
2019 PT LYING IN BED, REPORTS MOUTH AND THROAT PAIN OF 8/10, GIVING OXYCODONE, WILL EVAL FOR EFFECT. NO OTHER APPARENT SIGNS OF DISTRESS. CALL LIGHT IS IN REACH. 2132 PT REQUESTED AND RECIEVED NORCO AND MAGIC MOUTHWASH FOR PAIN OF 8/10 IN MOUTH AND THROAT. ADMINISTERED AND WILL EVAL FOR EFFECT. NO OTHER APPARENT SIGNS OF DISTRESS. CALL LIGHT IS IN REACH.
--- NOTE | 2019-03-19 23:50 | NUR ---
GAVE PATIENT HIS MIDNIGHT MEDICATIONS. PT DENIES NEED FOR ANYTHING ELSE AT THIS TIME. NO APPARENT SIGNS OF DISTRESS. CALL LIGHT IS IN REACH. ASSISTED ENGLISH LECTURER IN TURNING THE PATIENT.
--- NOTE | 2019-03-20 01:55 | NUR ---
ASSISTED SUPERVISOR POLICY CHANGE CLERKS IN TURNING PATIENT. PT DENIES NEED FOR ANYTHING ELSE AT THIS TIME. NO APPARENT SIGNS OF DISTRESS. CALL LIGHT IS IN REACH.
--- NOTE | 2019-03-20 03:31 | NUR ---
ASSISTED GLOBAL COMPENSATION MANAGER IN TURNING PATIENT. PT REQUESTED AND RECIEVED PAIN MEDICATION, WILL EVAL FOR EFFECT. NO OTHER APPARENT SIGNS OF DISTRESS. CALL LIGHT IS IN REACH.
--- NOTE | 2019-03-20 03:39 | NUR ---
PT IS AAO X 4 BUT SLEEPY. ON RARinku MAE. SCD'S. BS WAS 175. BRUISES AND SKIN TEARS ON UE'S. REDNESS AND SBD ON BOTTOM AND ABD FOLDS. Q 2 HOUR TURN. PAIN IN MOUTH AND THROAT, GOT ROXICODONE, NORCO, AND MAGIC MOUTHWASH.
[2019-03-20 05:42] LABS: BASOPHILS ABSOLUTE AUTO 0.07 K/mm3 (0.00-0.23); BASOPHILS PERCENT AUTO 1 % (0-2); EOSINOPHILS ABSOLUTE AUTO 0.28 K/mm3 (0.00-0.68); EOSINOPHILS PERCENT AUTO 3 % (0-6); Hematocrit 27.2 % (37.0-53.0); Hemoglobin 8.2 g/dL (13.5-17.5); IMMATURE GRAN ABSOLUTE AUTO 0.08 K/mm3 (0.00-0.10); IMMATURE GRAN PERCENT AUTO 1 % (0-1); LYMPHOCYTES ABSOLUTE AUTO 0.77 K/mm3 (0.84-5.20); LYMPHOCYTES PERCENT AUTO 8 % (21-46); MONOCYTES ABSOLUTE AUTO 0.81 K/mm3 (0.16-1.47); MONOCYTES PERCENT AUTO 8 % (4-13); Mean Corpuscular HGB Conc 30.1 g/dL (31.5-36.5); Mean Corpuscular Volume 90 fL (80-100); Mean Platelet Volume 11.1 fL (9.1-12.4); NEUTROPHILS ABSOLUTE AUTO 7.81 K/mm3 (1.96-9.15); NEUTROPHILS PERCENT AUTO 80 % (41-73); Platelet Count 84 K/mm3 (150-400); RDW Coefficient Variation 15.2 % (11.7-14.2); RDW Standard Deviation 49.3 fL (35.1-46.3); Red Blood Cell Count 3.04 M/mm3 (4.30-5.90); White Blood Cell Count 9.82 K/mm3 (4.00-11.30)
--- NOTE | 2019-03-20 05:44 | NUR ---
PT LYING IN BED, EYES CLOSED, APPEARS TO BE RESTING. BREATHING IS EVEN, UNLABORED. NO APPARENT SIGNS OF DISTRESS. CALL LIGHT IS IN REACH. NO OTHER CHANGES THIS SHIFT.
[2019-03-20 06:08] LABS: Albumin, Blood 2.5 g/dL (3.4-5.0); Anion Gap 8 mmol/L (6-16); Blood Urea Nitrogen 130 mg/dL (8-24); Bun/Creatinine Ratio 64.4 (12.0-20.0); CO2, Blood 27 mmol/L (21-32); Calcium, Blood 7.8 mg/dL (8.5-10.1); Chloride, Blood 99 mmol/L (98-108); Creatinine, Blood 2.02 mg/dL (0.60-1.20); Glomerular Filtration Rate 34 (60-); Glucose, Blood 134 mg/dL (70-99); Phosphorus, Blood 5.2 mg/dL (2.5-4.9); Potassium, Blood 5.3 mmol/L (3.5-5.5); Sodium, Blood 134 mmol/L (136-145)
--- NOTE | 2019-03-20 08:35 | NUR ---
REFUSED TO GET IN CHAIR. PT PLEASANT COOP A.O. PAIN ON BOTTOM AREA. MED PER EMAR. DID REPOSITION, H/R REG, MURMER NOTED. NO TELE. LUNGS EXP WHE T/O. WITH CRACKLES LOW RT. ON R/A. BT X4 LAST BM 3 DAYS. ABD SOFT TENDER LARGE. MAE CATH DRAINING LIGHT YELLOW FLUID. BRUISING AND SKIN TEARS BUE. BREAKDOWN FOLDS ABD. NO OTHER CONCERNS AT THIS TIME. BED IN LOW POSITION, CALL LITE IN REACH, CALLS APPROP
--- NOTE | 2019-03-20 10:06 | NUR ---
Pt visit this AM. Pt reports 6/10 pain in his throat and tongue. Pt's bedside nurse Jeffrey in to medicate Pt for pain. Pt and family have chosen [facility]. Listened as Pt's Libertad expresses concerns on reposition Pt when Pt is home. Libertad reports having a bad back and some of the other family members have some disabilities. Spoke with Kristine from physical therapy and she reports she can educate family and requests family to be present when she visits. No other concerns reported at this time. Pt's bedside nurse Jeffrey reports no concerns at this time. Palliative Care will remain available
--- NOTE | 2019-03-20 10:26 | NUR ---
Late Entry Called and left voice message with care managment coodinator Arelis that Pt and family have chosen [facility].
--- NOTE | 2019-03-20 15:58 | NUR ---
PT PLEASANT TODAY. TURNED REGULARLY. PAIN MANAGED WITH AQVAILABLE MEDICATIONS. BED IN LOW POSITION, CALL LITE IN REACH, EDUCATED ON TURNING TECNIQUES SHOWED AND HAD HER HELP IN PILLOW PLACEMENT. NO OTHER CONCERNS AT THIS TIME. BED IN LOW POSITION, CALL LITE IN REACH, CALLS APROP
[2019-03-21 05:27] LABS: BASOPHILS ABSOLUTE AUTO 0.08 K/mm3 (0.00-0.23); BASOPHILS PERCENT AUTO 1 % (0-2); EOSINOPHILS ABSOLUTE AUTO 0.29 K/mm3 (0.00-0.68); EOSINOPHILS PERCENT AUTO 3 % (0-6); Hematocrit 29.6 % (37.0-53.0); Hemoglobin 8.9 g/dL (13.5-17.5); IMMATURE GRAN ABSOLUTE AUTO 0.11 K/mm3 (0.00-0.10); IMMATURE GRAN PERCENT AUTO 1 % (0-1); LYMPHOCYTES ABSOLUTE AUTO 0.87 K/mm3 (0.84-5.20); LYMPHOCYTES PERCENT AUTO 8 % (21-46); MONOCYTES ABSOLUTE AUTO 0.75 K/mm3 (0.16-1.47); MONOCYTES PERCENT AUTO 7 % (4-13); Mean Corpuscular HGB 26.5 pg (26.0-34.0); Mean Corpuscular HGB Conc 30.1 g/dL (31.5-36.5); Mean Corpuscular Volume 88 fL (80-100); Mean Platelet Volume 11.3 fL (9.1-12.4); NEUTROPHILS ABSOLUTE AUTO 8.21 K/mm3 (1.96-9.15); NEUTROPHILS PERCENT AUTO 80 % (41-73); NRBC ABSOLUTE 0.02 K/mm3 (0.00-0.02); NRBC Auto 0.2 /100 WBC (0.0-0.2); Platelet Count 106 K/mm3 (150-400); RDW Coefficient Variation 15.2 % (11.7-14.2); RDW Standard Deviation 49.1 fL (35.1-46.3); Red Blood Cell Count 3.36 M/mm3 (4.30-5.90); White Blood Cell Count 10.31 K/mm3 (4.00-11.30)
[2019-03-21 05:48] LABS: Albumin, Blood 2.7 g/dL (3.4-5.0); Anion Gap 7 mmol/L (6-16); Blood Urea Nitrogen 127 mg/dL (8-24); Bun/Creatinine Ratio 60.8 (12.0-20.0); CO2, Blood 30 mmol/L (21-32); Chloride, Blood 96 mmol/L (98-108); Creatinine, Blood 2.09 mg/dL (0.60-1.20); Glomerular Filtration Rate 33 (60-); Glucose, Blood 150 mg/dL (70-99); Phosphorus, Blood 4.7 mg/dL (2.5-4.9); Potassium, Blood 5.1 mmol/L (3.5-5.5); Sodium, Blood 133 mmol/L (136-145)
--- NOTE | 2019-03-21 05:50 | NUR ---
SUMMARY: A/OX4, SPECIFIES NEEDS AND CALL FREQUENTLY FOR REPOSITIONING. PT IS WEAK AND DECONDITIONED W/EXCORIATION TO BUTTOCKS AND MEPILEX IN PLACE. DX WAS CHANGED D/T BECOMING SOILED W/SMALL BM THIS SHIFT. HE HAS SKIN TEARS TO BILAT ELBOWS W/DX'S REMAINING C/D/I. PANUS AND ABDO FOLDS HAVE OPEN SORES FROM YEAST INFECTION SO NYSTATIN WAS APPLIED AND SKIN KEPT DRY W/FOAM DX'S CHANGED FOR FURTHER SBD PREVENTION. ABDO REMAINS LARGE, DISTENDED AND TENDER W/ASCITES. MAE IS PATENT/DRAINING FOR RETENTION. BLE EDEMA PERSISTS DESPITE IV BUMEX AND LEGS ELEVATED ON PILLOWS W/SCD'S IN PLACE. NORCO RECIEVED PRN FOR MOUTH PAIN IN ADDITION TO SCHEDULED ORAL NYSTATIN. NO ACUTE CHANGES, VSS/AFEBRILE. WILL MONITOR AND REPORT TO DAY RN.
--- NOTE | 2019-03-21 17:39 | NUR ---
PATIENT IS ALERT AND ORIENTED AND COOPERATIVE WITH CARE. HE CALLS APPROPRIATELY. PICTURES OF THE WOUND ON HIS BUTTOCKS WAS TAKEN TODAY AND PUT IN THE CHART. PAIN TREATED PER EMAR. MAE CATHETER IS PATENT AND DRAINING WELL. WILL CONTINUE TO MONITOR THE PATIENT.
--- NOTE | 2019-03-22 04:37 | NUR ---
SUMMARY: PT A/OX3, CALM AND COOPERATIVE W/CARE. HE CALLS APPROPRIATELY TO SPECIFY NEEDS AND WAS REPOSITIONED FREQUENTLY PER REQUEST. [facility] RECIEVED PRN FOR MOUTH/THROAT AND COCCYX PAIN AND PT REFUSED NYSTATIN PO AND MAGIC MOUTH WASH THIS SHIFT STATING IT'S BEGIN TO MAKE HIM NAUSEOUS. MEPILEX TO EXCORIATED BUTTOCKS REMAINS C/D/I. BILAT ELBOW DX'S TO SKIN TEARS AND INTACT WELL. FOAM TO EXCORIATED PANUS FROM YEAST INFECTION WAS CHANGED AND NEW NYSTATIN POWDER APPLIED PER EMAR. SNACKS PROVIDED PRN AND TURN SCHEDULE MAINTAINED. GENERAL EDEMA PERSISTS W/PITTING WORSE FROM HIPS DOWN. LEGS ELEVATED ON PILLOWS AND BUMEX RECIEVED. MAE IS PATENT/DRAINING. NO ACUTE CHANGES, VSS AND AFEBRILE. WCTM AND REPORT TO DAY RN.
[2019-03-22 04:42] LABS: BASOPHILS ABSOLUTE AUTO 0.08 K/mm3 (0.00-0.23); BASOPHILS PERCENT AUTO 1 % (0-2); EOSINOPHILS ABSOLUTE AUTO 0.36 K/mm3 (0.00-0.68); EOSINOPHILS PERCENT AUTO 3 % (0-6); Hemoglobin 8.8 g/dL (13.5-17.5); IMMATURE GRAN ABSOLUTE AUTO 0.11 K/mm3 (0.00-0.10); IMMATURE GRAN PERCENT AUTO 1 % (0-1); LYMPHOCYTES ABSOLUTE AUTO 1.07 K/mm3 (0.84-5.20); LYMPHOCYTES PERCENT AUTO 10 % (21-46); MONOCYTES ABSOLUTE AUTO 0.73 K/mm3 (0.16-1.47); MONOCYTES PERCENT AUTO 7 % (4-13); Mean Corpuscular HGB 26.1 pg (26.0-34.0); Mean Corpuscular HGB Conc 30.3 g/dL (31.5-36.5); Mean Corpuscular Volume 86 fL (80-100); Mean Platelet Volume 11.5 fL (9.1-12.4); NEUTROPHILS ABSOLUTE AUTO 8.83 K/mm3 (1.96-9.15); NEUTROPHILS PERCENT AUTO 79 % (41-73); NRBC ABSOLUTE 0.02 K/mm3 (0.00-0.02); NRBC Auto 0.2 /100 WBC (0.0-0.2); Platelet Count 108 K/mm3 (150-400); RDW Coefficient Variation 15.4 % (11.7-14.2); RDW Standard Deviation 48.5 fL (35.1-46.3); Red Blood Cell Count 3.37 M/mm3 (4.30-5.90); White Blood Cell Count 11.18 K/mm3 (4.00-11.30)
[2019-03-22 05:00] LABS: Albumin, Blood 2.6 g/dL (3.4-5.0); Anion Gap 8 mmol/L (6-16); Blood Urea Nitrogen 134 mg/dL (8-24); Bun/Creatinine Ratio 62.3 (12.0-20.0); CO2, Blood 31 mmol/L (21-32); Calcium, Blood 8.3 mg/dL (8.5-10.1); Chloride, Blood 95 mmol/L (98-108); Creatinine, Blood 2.15 mg/dL (0.60-1.20); Glomerular Filtration Rate 32 (60-); Glucose, Blood 144 mg/dL (70-99); Phosphorus, Blood 4.6 mg/dL (2.5-4.9); Sodium, Blood 134 mmol/L (136-145)
--- NOTE | 2019-03-22 16:56 | NUR ---
Visit made this am to pt and found him sound asleep with no family in room. Case conferenced with RN, Cattle Sprayer and dietitian at that time. Returned this afternoon and spoke with PT, RN, CM and health outcomes liaison. Comfort assessment done. Pt denies nausea at this time. He reports his mouth pain is better, back and abd pain is improved but he feels "ready for a pain medication" if he is able to have one now. THis was reported to RN who will medicate for pain per eMAR. Pt appears much more comfortable than he did on Thursday. Chief c/o discomort at this time is that his IV has started to burn. THis was reported to RN also. Pt's brenda LE edema is improved since Thursday. He has byers cath/urine output noted. Pt to be transferred home tomorrow with no IV on hospice care. I recommended that if IV was found not patent, that no restart of IV be done since pt is able to swallow medications safely at this time. Pt's son, and step son at bedside and requesting to speak to dc environmental restoration planner. I paged JENNIFER Ulloa and she came down to coordinate w/family, who now states they will go with [facility] hospice, since had already called an order in to them. Hospice staff will meet at their home this afternoon to assess the home and Laila will work on getting DME identified as needed by staff, family and PT. Will f/u tomorrow for s/s assessment. Pt appears calm and able to state his needs at this time. Family members appear to be working well together to meet pt's needs.
--- NOTE | 2019-03-22 18:21 | NUR ---
PATIENT IS ALERT AND ORIENTED AND COOPERATIVE WITH CARE. HIS FAMILY MET WITH [facility] TODAY TO DISCUSS HIS DISCHARGE NEEDS. PALLIATIVE CARE MET MET WITH THE PATIENT AND FAMILY TODAY. THE PATIENT'S IV STARTED LEAKING WITH THE ADMINISTRATION OF IV MEDICATIONS. THE PATIENT DECIDED THAT HE DID NOT WANT ANOTHER IV INSERTED. CHANGES WERE MADE TO HIS MEDICATIONS TO ACCOMODATE THESE CHANGES. WILL CONTINUE TO MONITOR.
--- NOTE | 2019-03-23 00:37 | NUR ---
no iv access unable to give bumex injection will ask to change med to po vs iv when speak to dr next or pass on to day shift if appropriate
[2019-03-23 04:35] LABS: BASOPHILS ABSOLUTE AUTO 0.07 K/mm3 (0.00-0.23); BASOPHILS PERCENT AUTO 1 % (0-2); EOSINOPHILS ABSOLUTE AUTO 0.34 K/mm3 (0.00-0.68); EOSINOPHILS PERCENT AUTO 3 % (0-6); Hematocrit 29.4 % (37.0-53.0); Hemoglobin 8.8 g/dL (13.5-17.5); IMMATURE GRAN ABSOLUTE AUTO 0.08 K/mm3 (0.00-0.10); IMMATURE GRAN PERCENT AUTO 1 % (0-1); LYMPHOCYTES ABSOLUTE AUTO 0.93 K/mm3 (0.84-5.20); LYMPHOCYTES PERCENT AUTO 9 % (21-46); MONOCYTES ABSOLUTE AUTO 0.59 K/mm3 (0.16-1.47); MONOCYTES PERCENT AUTO 6 % (4-13); Mean Corpuscular HGB 26.2 pg (26.0-34.0); Mean Corpuscular HGB Conc 29.9 g/dL (31.5-36.5); Mean Corpuscular Volume 88 fL (80-100); NEUTROPHILS ABSOLUTE AUTO 8.34 K/mm3 (1.96-9.15); NEUTROPHILS PERCENT AUTO 81 % (41-73); Platelet Count 110 K/mm3 (150-400); RDW Coefficient Variation 15.5 % (11.7-14.2); RDW Standard Deviation 49.5 fL (35.1-46.3); Red Blood Cell Count 3.36 M/mm3 (4.30-5.90); White Blood Cell Count 10.35 K/mm3 (4.00-11.30)
[2019-03-23 04:56] LABS: Albumin, Blood 2.5 g/dL (3.4-5.0); Anion Gap 8 mmol/L (6-16); Blood Urea Nitrogen 137 mg/dL (8-24); Bun/Creatinine Ratio 62.6 (12.0-20.0); CO2, Blood 31 mmol/L (21-32); Chloride, Blood 95 mmol/L (98-108); Creatinine, Blood 2.19 mg/dL (0.60-1.20); Glomerular Filtration Rate 31 (60-); Glucose, Blood 155 mg/dL (70-99); Phosphorus, Blood 4.8 mg/dL (2.5-4.9); Potassium, Blood 4.9 mmol/L (3.5-5.5); Sodium, Blood 134 mmol/L (136-145)
--- NOTE | 2019-03-23 06:48 | NUR ---
a+o, repositioned q2, call light in reach, room air, no IV, hopes to be going home with hospice, slow to take medication, will continue to monitor and treat until sbar report provided to day shift
--- NOTE | 2019-03-23 09:47 | NUR ---
PER DR WANG LEAVE MAE IN PLACE FOR PT TO DISCHARGE HOME TODAY WITH HOSPICE.
[2019-03-23] MEDS ORDERED: Xylocaine5 M1 MM (11:07)
[2019-03-23] MEDS ORDERED: Pedi-Dri 100,0060 GM TOP (11:08)
[2019-03-23] MEDS ORDERED: GAVILAX17 GM PO (11:08)
[2019-03-23] MEDS ORDERED: NYST100000 PO (11:08)
[2019-03-23] MEDS ORDERED: PRED5EL UD (11:09)
[2019-03-23] MEDS ORDERED: ONDA4ODT MM (11:09)
--- NOTE | 2019-03-23 11:20 | NUR ---
REPORT CALLED TO SPOUSE MARCINRinku MAE KEPT IN PLACE PER DR HANSEN FOR PT TO D/C HOME WITH HOSPICE.
--- NOTE | 2019-03-23 11:30 | NUR ---
PT DISCHARGED HOME WITH HOSPICE VIA [facility] AT 1130.
== END 2019-03-23 11:32 | disposition hospice, home (50) | DRG 683 ==
LOC: ER 16:46 → MEDS 20:22 → ENPENDDIS 03-23 10:57 → MEDS 03-23 11:32
PROVIDERS: Emergency Medicine; Internal Medicine; Internal Medicine Nephrology; ADMIT Internal Medicine
PROC: 30233N1 Transfusion of Nonautologous Red Blood Cells into Peripheral Vein, Percutaneous Approach (ICD-10-PCS; principal; 2019-03-15)
DX: N17.9 Acute kidney failure, unspecified (principal); C49.9 Malignant neoplasm of connective and soft tissue, unspecified; K76.6 Portal hypertension; E87.1 Hypo-osmolality and hyponatremia; B37.0 Candidal stomatitis; E44.1 Mild protein-calorie malnutrition; I12.9 Hypertensive chronic kidney disease with stage 1 through stage 4 chronic kidney disease, or unspecified chronic kidney disease; E78.5 Hyperlipidemia, unspecified; R16.1 Splenomegaly, not elsewhere classified; Z68.33 Body mass index [BMI] 33.0-33.9, adult; I73.9 Peripheral vascular disease, unspecified; E11.22 Type 2 diabetes mellitus with diabetic chronic kidney disease; E87.70 Fluid overload, unspecified; E88.09 Other disorders of plasma-protein metabolism, not elsewhere classified; N18.3 Chronic kidney disease, stage 3 (moderate); R60.1 Generalized edema; R53.81 Other malaise; E87.5 Hyperkalemia; E83.41 Hypermagnesemia; B19.20 Unspecified viral hepatitis C without hepatic coma; D63.1 Anemia in chronic kidney disease; K74.60 Unspecified cirrhosis of liver; Z51.5 Encounter for palliative care; I86.4 Gastric varices; L89.152 Pressure ulcer of sacral region, stage 2; Z79.84 Long term (current) use of oral hypoglycemic drugs
CPT/HCPCS: 36415; 36430; 74176; 76770; 80048; 80053; 80069; 81001; 82947; 83690; 83735; 83880; 85014; 85018; 85025; 85027; 85610; 85730; 86850; 86900; 86901; 86923; 87077; 87086; 87186; 93005; 93010; 97110; 97162; 97166; 97530; 97535; 99285-25; A9270-GY; J0696; J0881; J1815; J2405; J7050; P9016; P9041